=== PATIENT | female | born 1985 | race Caucasian/White ===

== ENCOUNTER 2016-12-30 10:14 | Outpatient (CLI) | payer OTHER ==
[2016-12-30] VITALS (9 sets, daily range): BP systolic 142–161; BP diastolic 83–99
[~2016-12-30] VITALS: Ht 167.6 cm; Wt 104.3 kg
[~2016-12-30 10:14] MED LIST: ATARAX,VISTARIL25 MG PO; CITALOPRAM HBR20 MG PO; CYMBALTA30 MG PO; LORAZEPAM0.5 MG PO; ORSYTHIA1 EACH PO; PRENATAL TABLE1 EAC3 PO; PROMETHAZINE HC25 M1 PO; TOPIRAMATE25 MG PO
[2016-12-30 12:06] LABS: EOSINOPHIL (%) 0 % (0-5); HEMATOCRIT 34.2 % (36.0-46.0); IMMATURE GRANULOCYTE (%) 1.1 % (0.0-0.7); IMMATURE GRANULOCYTE COUNT 0.1 K/uL; INSTRUMENT ABS NEUTROPHIL CT 10.4 K/uL; LYMPHOCYTE COUNT 1.5 K/uL (1.0-2.8); MCH 27.6 PG (29.0-34.0); MCHC 32.2 G/DL (30.0-36.0); MCV 85.9 FL (83-99); MONOCYTE (%) 6.9 % (3-12); MONOCYTE COUNT 0.9 K/uL (0-0.8); NEUTROPHIL (%) 80.5 % (45-76); NEUTROPHIL COUNT 10.4 K/uL (1.8-6.4); RBC DIS.WIDTH-CV 14.6 % (11.8-14.6); RBC DIS.WIDTH-SD 45.6 % (39-53); RED BLOOD COUNT 3.98 M/uL (3.80-5.20)
[2016-12-30 12:11] LABS: UR CREATININE CONCENTRATION 47.9 MG/DL
[2016-12-30 12:49] LABS: MEAN PLAT.VOLUME 12.2 uM^3 (9.5-12.4); PLAT.SUFFICIENCY ADEQUATE; PLATELET COUNT 200 K/uL (156-360)
[2016-12-30 12:53] LABS: ALKALINE PHOSPHATASE 180 IU/L (3-129); ANION GAP 10 MEQ/L (2-14); CHLORIDE 107 MEQ/L (99-109); GFR ESTIMATE (CALCULATED) > 59 mL/min/; GLUCOSE 62 mg/dL (70-99); POTASSIUM 4.4 MEQ/L (3.7-5.4); SAMPLE HEMOLYSIS CHECK 0; SAMPLE ICTERIC CHECK 0; SAMPLE LIPEMIA CHECK 0; SODIUM 137 MEQ/L (136-147); TOTAL BILIRUBIN 0.4 MG/DL (0.0-1.0); UREA NITROGEN (BUN) 6 mg/dL (9-23)
== END 2016-12-30 15:45 | disposition home or self-care (01) ==
LOC: LDRP-OP → 2WEST 10:15 → LDRP-OP 03-01 13:23
PROVIDERS: Nurse Practitioner
DX: O13.3 Gestational [pregnancy-induced] hypertension without significant proteinuria, third trimester (principal); Z3A.35 35 weeks gestation of pregnancy
CPT/HCPCS: 59025; 76805; 76818; 80053; 82570; 84156; 85025; 87081; G0378

== ENCOUNTER 2017-01-02 10:18 | Outpatient (CLI) | payer OTHER ==
[~2017-01-02] VITALS: Ht 167.6 cm; Wt 105.2 kg
[2017-01-02 10:42] VITALS: BP 142/89
[2017-01-02 10:59] VITALS: BP 136/91
[2017-01-02 11:17] VITALS: BP 146/90
[2017-01-02 11:31] VITALS: BP 151/91
[2017-01-02 11:51] VITALS: BP 135/93
[2017-01-02] MEDS ORDERED: AUGMENTIN875 MG PO (12:24)
== END 2017-01-02 12:54 | disposition home or self-care (01) ==
LOC: LDRP-OP 10:18 → 2WEST 10:19 → LDRP-OP 03-01 15:53
DX: O16.9 Unspecified maternal hypertension, unspecified trimester (principal); Z3A.00 Weeks of gestation of pregnancy not specified
CPT/HCPCS: 59025; G0378

== ENCOUNTER 2017-01-09 06:38 | Inpatient (IN) | payer OTHER ==
[~2017-01-09] VITALS: Ht 167.6 cm; Wt 106.6 kg
[2017-01-09] VITALS (23 sets, daily range): BP systolic 130–187; BP diastolic 77–110
[~2017-01-09 06:38] MED LIST changes: +AUGMENTIN875 MG PO
[2017-01-09 08:19] LABS: EOSINOPHIL (%) 0 % (0-5); HEMATOCRIT 34.4 % (36.0-46.0); IMMATURE GRANULOCYTE (%) 2.1 % (0.0-0.7); IMMATURE GRANULOCYTE COUNT 0.2 K/uL; INSTRUMENT ABS NEUTROPHIL CT 7.9 K/uL; LYMPHOCYTE COUNT 1.6 K/uL (1.0-2.8); MCH 26.9 PG (29.0-34.0); MCHC 32.3 G/DL (30.0-36.0); MCV 83.5 FL (83-99); MEAN PLAT.VOLUME 13.1 uM^3 (9.5-12.4); MONOCYTE (%) 9.2 % (3-12); NEUTROPHIL COUNT 7.9 K/uL (1.8-6.4); PLATELET COUNT 199 K/uL (156-360); RBC DIS.WIDTH-CV 14.6 % (11.8-14.6); RBC DIS.WIDTH-SD 44.1 % (39-53); RED BLOOD COUNT 4.12 M/uL (3.80-5.20); WHITE BLOOD COUNT 10.7 K/uL (4.1-10.2)
[2017-01-09 08:54] LABS: ALKALINE PHOSPHATASE 186 IU/L (3-129); ANION GAP 8 MEQ/L (2-14); CHLORIDE 107 MEQ/L (99-109); GFR ESTIMATE (CALCULATED) > 59 mL/min/; GLUCOSE 84 mg/dL (70-99); POTASSIUM 3.8 MEQ/L (3.7-5.4); SAMPLE HEMOLYSIS CHECK 0; SAMPLE ICTERIC CHECK 0; SAMPLE LIPEMIA CHECK 0; SODIUM 137 MEQ/L (136-147); TOTAL BILIRUBIN 0.3 MG/DL (0.0-1.0); UREA NITROGEN (BUN) 7 mg/dL (9-23)
[2017-01-09 08:55] LABS: UR CREATININE CONCENTRATION 208.8 MG/DL
[2017-01-10] VITALS (32 sets, daily range): BP systolic 127–177; BP diastolic 72–105
[2017-01-11] VITALS (31 sets, daily range): BP systolic 125–188; BP diastolic 72–105
[2017-01-11] MEDS ORDERED: IBUPROFEN800 MG PO (13:41)
[2017-01-12] VITALS (28 sets, daily range): BP systolic 123–164; BP diastolic 66–101
[2017-01-12 07:41] LABS: EOSINOPHIL (%) 0 % (0-5); HEMATOCRIT 23.5 % (36.0-46.0); IMMATURE GRANULOCYTE (%) 1.5 % (0.0-0.7); IMMATURE GRANULOCYTE COUNT 0.2 K/uL; INSTRUMENT ABS NEUTROPHIL CT 12.2 K/uL; LYMPHOCYTE COUNT 2.3 K/uL (1.0-2.8); MCH 26.9 PG (29.0-34.0); MCHC 31.9 G/DL (30.0-36.0); MCV 84.2 FL (83-99); MEAN PLAT.VOLUME 12.3 uM^3 (9.5-12.4); MONOCYTE (%) 8.2 % (3-12); MONOCYTE COUNT 1.3 K/uL (0-0.8); NEUTROPHIL (%) 75.8 % (45-76); NEUTROPHIL COUNT 12.2 K/uL (1.8-6.4); PLATELET COUNT 203 K/uL (156-360); RBC DIS.WIDTH-CV 15.2 % (11.8-14.6); RBC DIS.WIDTH-SD 46.8 % (39-53); RED BLOOD COUNT 2.79 M/uL (3.80-5.20); WHITE BLOOD COUNT 16.1 K/uL (4.1-10.2)
[2017-01-13 03:26] VITALS: BP 138/78
[2017-01-13 07:30] VITALS: BP 133/72
[2017-01-13 12:00] VITALS: BP 146/82
[2017-01-13] MEDS ORDERED: LABETALOL HCL200 MG PO (16:38)
== END 2017-01-13 17:17 | disposition home or self-care (01) | DRG 774 ==
LOC: LDRP-OP 06:38 → 2WEST 06:39 → LDRP-OP 03-03 13:00
PROVIDERS: Advanced Practice Midwife; Nurse Practitioner; Obstetrics & Gynecology
PROC: 3E033VJ Introduction of Other Hormone into Peripheral Vein, Percutaneous Approach (ICD-10-PCS; principal; 2017-01-09)
PROC: 3E0P7GC Introduction of Other Therapeutic Substance into Female Reproductive, Via Natural or Artificial Opening (ICD-10-PCS; principal; 2017-01-09)
PROC: 3E0S3CZ (ICD-10-PCS; 2017-01-10)
PROC: 00HU33Z Insertion of Infusion Device into Spinal Canal, Percutaneous Approach (ICD-10-PCS; 2017-01-10)
PROC: 10907ZC Drainage of Amniotic Fluid, Therapeutic from Products of Conception, Via Natural or Artificial Opening (ICD-10-PCS; 2017-01-10)
PROC: 10E0XZZ Delivery of Products of Conception, External Approach (ICD-10-PCS; 2017-01-11)
PROC: 0UQG7ZZ Repair Vagina, Via Natural or Artificial Opening (ICD-10-PCS; 2017-01-11)
PROC: 30233N1 Transfusion of Nonautologous Red Blood Cells into Peripheral Vein, Percutaneous Approach (ICD-10-PCS; 2017-01-12)
DX: O71.4 Obstetric high vaginal laceration alone (principal); O72.1 Other immediate postpartum hemorrhage; O14.14 Severe pre-eclampsia complicating childbirth; O63.1 Prolonged second stage (of labor); O90.81 Anemia of the puerperium; D62 Acute posthemorrhagic anemia; Z3A.37 37 weeks gestation of pregnancy; Z37.0 Single live birth; O99.344 Other mental disorders complicating childbirth; F41.9 Anxiety disorder, unspecified; F32.9 Major depressive disorder, single episode, unspecified; F42.8 Other obsessive-compulsive disorder; O99.52 Diseases of the respiratory system complicating childbirth; J45.909 Unspecified asthma, uncomplicated; O99.214 Obesity complicating childbirth; E66.9 Obesity, unspecified; Z68.30 Body mass index [BMI] 30.0-30.9, adult
CPT/HCPCS: 80053; 82570; 83735; 84156; 85025; 86900; 86901; 86920; C1755; C1776; G0378; J1940; J3010; J3475; J7120; P9016; Q0169